=== PATIENT | male | born 1940 | race African-American/Black ===

== ENCOUNTER 2016-08-15 09:23 | Observation (INO) | payer OTHER ==
[~2016-08-15] VITALS: Ht 182.9 cm; Wt 90.6 kg
[~2016-08-15 09:23] MED LIST: NOHOMEMEDS
[2016-08-15 11:50] LABS: HEMATOCRIT 43.1 % (38.0-50.0); INSTRUMENT ABS NEUTROPHIL CT 1.4 K/uL; MCH 30.7 PG (29.0-34.0); MCHC 32.9 G/DL (30.0-36.0); MCV 93.3 FL (86-99); MONOCYTE COUNT 0.5 K/uL (0-0.8); NEUTROPHIL (%) 48.7 % (45-76); NEUTROPHIL COUNT 1.4 K/uL (1.8-6.4); PLATELET COUNT 202 K/uL (156-360); RBC DIS.WIDTH-CV 12.6 % (11.8-14.6); RBC DIS.WIDTH-SD 43.2 % (39-53); RED BLOOD COUNT 4.62 M/uL (4.00-5.50); WHITE BLOOD COUNT 2.9 K/uL (4.1-10.2)
[2016-08-15 12:18] LABS: ANION GAP 9 MEQ/L (2-14); CHLORIDE 106 MEQ/L (99-109); GFR ESTIMATE (CALCULATED) > 59 mL/min/; GLUCOSE 101 mg/dL (70-99); POTASSIUM 4.2 MEQ/L (3.7-5.4); SAMPLE HEMOLYSIS CHECK 0; SAMPLE ICTERIC CHECK 0; SAMPLE LIPEMIA CHECK 0; SODIUM 139 MEQ/L (136-147); UREA NITROGEN (BUN) 10 mg/dL (9-23)
[2016-08-15 12:23] LABS: TROP-I INTERPRETATION NEGATIVE; TROPONIN-I < 0.01 ng/mL (0.0-0.30)
[2016-08-15 15:16] VITALS: BP 166/91
[2016-08-15 17:35] LABS: TROP-I INTERPRETATION NEGATIVE; TROPONIN-I < 0.01 ng/mL (0.0-0.30)
[2016-08-15] MEDS ORDERED: LITE COAT ASPI325 M1 PO (18:08)
[2016-08-15 19:00] VITALS: BP 145/87
[2016-08-16] VITALS: BP 161/87
[2016-08-16 04:00] VITALS: BP 147/79
[2016-08-16 06:29] LABS: HEMATOCRIT 42.7 % (38.0-50.0); MCH 31.9 PG (29.0-34.0); MCV 94.1 FL (86-99); MEAN PLAT.VOLUME 9.6 uM^3 (9.0-12.4); PLATELET COUNT 197 K/uL (156-360); RBC DIS.WIDTH-CV 12.6 % (11.8-14.6); RBC DIS.WIDTH-SD 43.9 % (39-53); RED BLOOD COUNT 4.54 M/uL (4.00-5.50); WHITE BLOOD COUNT 3.3 K/uL (4.1-10.2)
[2016-08-16 07:35] LABS: ANION GAP 8 MEQ/L (2-14); CHLORIDE 105 MEQ/L (99-109); GFR ESTIMATE (CALCULATED) > 59 mL/min/; GLUCOSE 102 mg/dL (70-99); POTASSIUM 4.1 MEQ/L (3.7-5.4); SAMPLE HEMOLYSIS CHECK 0; SAMPLE ICTERIC CHECK 0; SAMPLE LIPEMIA CHECK 0; SODIUM 141 MEQ/L (136-147); UREA NITROGEN (BUN) 17 mg/dL (9-23)
[2016-08-16 08:55] VITALS: BP 165/91
[2016-08-16] MEDS ORDERED: AMLODIPINE BESYL5 MG PO (08:57)
[2016-08-16 09:23] LABS: TROP-I INTERPRETATION NEGATIVE; TROPONIN-I < 0.01 ng/mL (0.0-0.30)
== END 2016-08-16 12:05 | disposition home or self-care (01) ==
LOC: EME 09:23 → EDOF 13:40 → 5WEST 13:40
PROVIDERS: Emergency Medicine; Hospitalist
DX: R07.89 Other chest pain (principal); I10 Essential (primary) hypertension; R00.1 Bradycardia, unspecified; K21.9 Gastro-esophageal reflux disease without esophagitis; Z96.649 Presence of unspecified artificial hip joint
CPT/HCPCS: 71020; 80048; 84484; 85025; 85027; 93005; 99281; 99284; G0378; J1644; J7040

== ENCOUNTER 2017-01-03 18:48 | Emergency (ER) | payer OTHER ==
[~2017-01-03] VITALS: Ht 182.9 cm; Wt 93.2 kg
[~2017-01-03 18:48] MED LIST changes: +AMLODIPINE BESYL5 MG PO; +LITE COAT ASPI325 M1 PO
[2017-01-03 20:02] LABS: MCH 31.8 PG (29.0-34.0); MCHC 33.4 G/DL (30.0-36.0); MCV 95.2 FL (86-99); MEAN PLAT.VOLUME 9.1 uM^3 (9.0-12.4); PLATELET COUNT 315 K/uL (156-360); RBC DIS.WIDTH-CV 12.1 % (11.8-14.6); RBC DIS.WIDTH-SD 42.5 % (39-53); RED BLOOD COUNT 3.99 M/uL (4.00-5.50); WHITE BLOOD COUNT 5.4 K/uL (4.1-10.2)
[2017-01-03 20:11] LABS: INTER. NORMALIZED RATIO 1.4; PROTHROMBIN TIME 15.7 SEC (10.2-12.9)
[2017-01-03 20:19] LABS: CHLORIDE 107 mEq/L (99-109); POTASSIUM 4.4 mEq/L (3.7-5.4); SODIUM 142 mEq/L (136-147)
[2017-01-03 20:20] LABS: GLUCOSE 100 mg/dL (70-99)
[2017-01-03 20:22] LABS: ANION GAP 13 MEQ/L (2-14)
[2017-01-03 20:24] LABS: GFR ESTIMATE (CALCULATED) > 59 mL/min/
[2017-01-03 20:25] LABS: UREA NITROGEN (BUN) 15 mg/dL (9-23)
[2017-01-03 22:54] VITALS: BP 120/81
== END 2017-01-03 23:02 | disposition home or self-care (01) ==
LOC: EME 18:48
DX: M96.840 Postprocedural hematoma of a musculoskeletal structure following a musculoskeletal system procedure (principal); M25.552 Pain in left hip; Z98.890 Other specified postprocedural states; Z96.643 Presence of artificial hip joint, bilateral; Z79.82 Long term (current) use of aspirin
CPT/HCPCS: 80048; 85027; 85610; 99281; 99284